=== PATIENT | female | born 1970 | race Asian ===

== ENCOUNTER → 2024-05-14 | Outpatient (CLI) | payer MEDICAID, SELFPAY ==
[2024-05-14 12:13] LABS: Absolute Lymphocyte Count 1.77 X10^3/uL (0.83-4.51); Absolute Neutrophil Count 3.1 X10^3/uL (2.0-7.7); Basophil# 0.04 X10^3/uL; Basophil% 0.8 % (0-1); Eosinophil# 0.06 X10^3/uL; Eosinophils% 1.1 % (0-5); Hematocrit 43.7 % (37-47); Hemoglobin 13.9 g/dL (12.0-15.0); Lymphocyte # 1.77 X10^3/ul (0.83-4.51); Lymphocyte % 33.4 % (19-41); Mean Corp Hgb Conc 31.8 g/dL (32-36); Mean Corpuscular Hgb 28.5 pg (27.0-32.0); Mean Corpuscular Volume 89.7 fL (81-99); Mean Platelet Vol. 10.7 fl (6.2-12.0); Monocyte# 0.32 X10^3/uL; NRBC Flagged by Analyzer 0 % (0-5); Neutrophil % 58.5 % (47-70); Platelet Count 340 K/mm3 (150-450); RBC Distribution Width CV 13.2 % (11.6-14.6); RBC Distribution Width SD 43.6 fl (35.1-43.9); Red Blood Count 4.87 M/mm3 (4.2-5.4); White Blood Count 5.3 K/mm3 (4.4-11.0)
[2024-05-14 12:52] LABS: AST(SGOT) 20 U/L (15-37); Alanine Aminotransfer ALT/SGPT 40 U/L (13-56); Albumin, Serum 3.7 g/dL (3.2-5.0); Alkaline Phosphatase 87 U/L (45-117); Anion Gap 3 (5-15); BUN 22 mg/dL (7-18); Calcium,Total 9.4 mg/dL (8.5-10.1); Chloride 107 mmol/L (98-107); Cholesterol 176 mg/dL (200); Creatinine, Serum 0.54 mg/dL (0.55-1.02); EST Glomerular Filtration Rate 125 mL/min (>60); Est Glom Filt Rate - Afr Amer 151 mL/min (>60); Globulin 3.6 g/dL (2.2-4.2); Glucose 114 mg/dL (74-106); High Density Lipoprotein 69 mg/dL; Potassium 3.6 mmol/L (3.5-5.1); Protein, Total 7.3 g/dL (6.4-8.2); Sodium Level 138 mmol/L (136-145); Triglycerides 94 mg/dL; Very Low Density Lipoprotein 19 mg/dL (5-40)
[2024-05-14 14:40] LABS: Hemoglobin A1c 6.4 % (3.8-5.6)
== END | disposition home or self-care (01) ==
LOC: BIMLAB 09:37
PROVIDERS: PCP Internal Medicine; Referring Provider Internal Medicine; Visit Provider Internal Medicine
DX: Z13.6 Encounter for screening for cardiovascular disorders (principal); Z83.3 Family history of diabetes mellitus; I10 Essential (primary) hypertension
CPT/HCPCS: 36415; 80053; 80061; 83036; 85025

== ENCOUNTER → 2024-06-04 | Outpatient (CLI) | payer MEDICAID, SELFPAY ==
--- NOTE | 2024-06-04 08:45 | BI_ITS ---
PROCEDURE: SCRN MAMM (CAD)W/SANDHYA BILAT REASON FOR EXAM: F, Age 54 y/o, presents for annual screening mammography. TECHNIQUE: Bilateral screening digital breast tomosynthesis with 2D and 3D images. Computer aided detection. COMPARISON: None. This is a baseline mammogram. FINDINGS: There is a focal asymmetry in the upper inner left breast at middle depth. There are no suspicious masses, grouped calcifications or architectural distortions in the right breast. BI/SCRN MAMM (CAD)W/SANDHYA BILAT IMPRESSION: The focal asymmetry in the upper inner left breast at middle depth requires fur ther evaluation. Recommend diagnostic mammogram an ultrasound of the left breast. BI-RADS 0: INCOMPLETE - NEED ADDITIONAL IMAGING EVALUATION. Follow-up code: Additional Views obtained/call backs The patient will be notified of the results by letter. Reading Location: [id number]
== END | disposition home or self-care (01) ==
PROVIDERS: PCP Internal Medicine; Referring Provider Internal Medicine; Visit Provider Internal Medicine
DX: Z12.31 Encounter for screening mammogram for malignant neoplasm of breast (principal)
CPT/HCPCS: 77063; 77067

== ENCOUNTER → 2024-06-11 | Outpatient (CLI) | payer MEDICAID, SELFPAY ==
--- NOTE | 2024-06-11 09:06 | US_ITS ---
PROCEDURE: BREAST LIMITED UNILATERAL REASON FOR EXAM: Abnormal screening mammogram. TECHNIQUE: Targeted left breast ultrasound. COMPARISON: Comparison is made with prior mammograms dated June 04, 2024 and June 11, 2024. FINDINGS: LEFT: Left breast ultrasound was targeted to the upper inner quadrant of the left breast. The breast tissue appears sonographically normal. No cyst, solid mass, or suspicious shadowing. No sonographic abnormality is seen. US/Breast Limited Unilateral IMPRESSION: BI-RADS 1: NEGATIVE. RECOMMEND ANNUAL MAMMOGRAPHIC SCREENING. Follow-up code: Routine Follow-up Reading Location: [id number]
--- NOTE | 2024-06-11 09:06 | BI_ITS ---
EXAM: DIAG MAMM W/CAD, UNILAT CLINICAL HISTORY: Abnormal screening mammogram. COMPARISON: Comparison is made with prior study dated June 04, 2024. TECHNIQUE: 90 degree lateral as well as compression views of the left breast were obtained. CAD was performed as well. FINDINGS: Dense fibroglandular tissue. No definite nodule is seen. Sonographic correlation recommended. BI/DIAG MAMM W/CAD, UNILAT IMPRESSION: Sonographic correlation overlying the slightly upper inner left breast is recom mended. BI-RADS category: 0 Reading Location: [id number]
== END | disposition home or self-care (01) ==
PROVIDERS: PCP Internal Medicine; Referring Provider Internal Medicine; Visit Provider Internal Medicine
DX: R92.8 Other abnormal and inconclusive findings on diagnostic imaging of breast (principal)
CPT/HCPCS: 76642; 77065

== ENCOUNTER 2024-07-10 06:27 | Day surgery (SDC) | payer MEDICAID, SELFPAY ==
[2024-07-10] VITALS (9 sets, daily range): BP systolic 115–128; BP diastolic 82–95; PULSE 57–68; RESP 16–18; TEMP 36.3–36.4; O2SAT 96–100; BMI 31.0
--- NOTE | 2024-07-10 07:07 | PRE.ANES_ITS ---
ASA Classification* ASA Classification ASA Classification: 2 Assessment & Plan Anesthesia* Anesthesia Assessment Anesthesia Assessment: Discussed sedation and/or anesthesia options, risks, benefits, and alternatives with patient/parents/legal guardian/POA. Questions invited. The patient/parents/legal guardian/POA seems to understand and agrees to proceed with anesthesia plan. Reviewed the physical assessment, medical history, allergy history and patient home medications list prior to surgery/procedure/anesthetic and documented any changes. Performed airway and anesthesia risk assessments. Anesthesia Type Anesthesia Type: MAC Anesthesia Focused Assessment* Temperature: 97.3 F Pulse Rate: 68 Blood Pressure: 128/94 Respiratory Rate: 16 Pulse Ox: 96 Airway Assessment Mouth opens: >3 cm Mallampati Score: II Focused Labs Anesthesia Preop lab: CBC WBC 5.3 K/mm3 (4.4-11.0) 05/14/24 09:37 05/14/24 RBC 4.87 M/mm3 (4.2-5.4) 05/14/24 09:37 05/14/24 Hgb 13.9 g/dL (12.0-15.0) 05/14/24 09:37 05/14/24 Hct 43.7 % (37-47) 05/14/24 09:37 05/14/24 Plt Count 340 K/mm3 (150-450) 05/14/24 09:37 05/14/24 CHEMISTRY Potassium 3.6 mmol/L (3.5-5.1) 05/14/24 09:37 05/14/24 Sodium 138 mmol/L (136-145) 05/14/24 09:37 05/14/24 BUN 22 mg/dL (7-18) H 05/14/24 09:37 05/14/24 Creatinine 0.54 mg/dL (0.55-1.02) L 05/14/24 09:37 Glucose 114 mg/dL (74-106) H 05/14/24 09:37 05/14/24 COAG Pre-Assessment Diagnosis/Proposed Procedure Planned Operative Procedure(s): COLONOSCOPY Anesthesia History 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 When Was Last Pacemaker Check QUESTION #4 FULL TEXT: You/Your Family Experience fever (hyperthermia) with Anesthesia Last Oral Intake Last Oral intake: Last Oral Intake NPO since 21:00 07/10/24 06:48 Meds taken in AM with sips of No 07/10/24 06:48 water? Meds patient instructed to take am of surgery PONV PONV - house superintendent: PONV - house superintendent Female Yes 07/09/24 15:17 HX of Motion Sickness No 07/09/24 15:17 HX of N/V After Surgery No 07/09/24 15:17 Non-Smoker Yes 07/09/24 15:17 Duration of Surgery greater No 07/09/24 15:17 than 60 minutes Number of Risk Factors 2 07/09/24 15:17 PONV Score Moderate Risk 07/09/24 15:17 Height & Weight Height & Weight: Anesthesia: Height & Weight Height 5 ft 2 in 07/10/24 06:48 Weight: 77 kg 07/10/24 06:48 Body Mass Index (BMI) 31.0 07/10/24 06:48 Respiratory Assessment Respiratory Assessment - house superintendent: Respiratory Tract Infection Hx - house superintendent Hx Respiratory Tract Infection No 07/09/24 15:17 STOP Sleep Apnea STOP Sleep Apnea - house superintendent: STOP Sleep Apnea - house superintendent Hx Hypertension Yes 07/09/24 15:17 Hx Sleep Apnea No 07/09/24 15:17 CPAP BIPAP Do you snore loudly (louder No 07/09/24 15:17 than talking or can be heard Do you often feel tired/ No 07/09/24 15:17 fatigued/ sleepy during daytime? Has anyone observed you stop No 07/09/24 15:17 breathing during sleep? STOP Results Negative 07/09/24 15:17 QUESTION #5 FULL TEXT : Do you snore loudly (louder than talking or can be heard through closed doors)? Tobacco Use History Tobacco Use History - house superintendent: Tobacco Use History - house superintendent Tobacco Use Smoking Status Never smoker 07/09/24 15:17 Hx Tobacco Use No 07/09/24 15:17 Years Smoking Packs Smoked per Day Smoking Cessation Date was within the last 15 years Hx Smoking Cessation Date Hx Smoking Cessation Counseling Hematologic Medial History Hematologic Hx - house superintendent: Hematologic Medical Hx - booky Hx of Blood Transfusion No 07/09/24 15:17 Hx of Transfusion in last 3 No 07/09/24 15:17 Months Date of Last Transfusion (if within last 3 months) Ever experience any problems No 07/09/24 15:17 with transfusion(s)? Specify any problems Hx of Preganancy in last 3 No 07/09/24 15:17 Months Nurse Filling Out Transfusion MGRIFFITH 07/09/24 15:17 & Questions: Date: 07/09/24 07/09/24 15:17 Time: 15:22 07/09/24 15:17 Patient unable to answer at this time (ie. confused, unrespo /Reproduction History /Reproductive History - house superintendent: /Reproductive Hx- house superintendent Hx Now No 07/09/24 15:17 Gestational Age (in weeks): EDC: Hx Hx Para Hx Section SAB No 07/09/24 15:17 PFSH Medical History Dietary restriction Heartburn Non-smoker HTN (hypertension) Home Medications ?Medication ?Instructions ?Recorded ?Last Taken ?Type blood pressure monitor #1 ea 05/14/24 Unknown Rx multivitamin 1 tab PO QDAY 05/14/2407/09 History lisinopril 10 mg tablet 10 mg PO QDAY #90 tabs 05/2807/09/24 Rx Allergy/AdvReac Type Severity Reaction Status Date / Time bitter melon Allergy Intermediate Hives Verified 07/10/24 06:47 Family History Brother Diabetes Hypertension Sister Hypertension Diabetes Surgical History Previous section Social History household members: family housing: house current occupational status: employed 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
--- NOTE | 2024-07-10 07:17 | H&P.OPEN ---
HPI - General General Date of Service: 07/10/24 HPI Narrative TANNER NOVOA, is a 54 F who presents for screening colonoscopy. Did discuss procedure and risk using the production material handler tablet. Patient no further questions this time. Denies any changes since the office visit. Patient states she has bowel movements almost every day denies any blood. 05/28/2024 office visit HPI HPI: 54-year-old female presents with her [id number]- for screening for colon cancer/colonoscopy. Patient speaks little [place] language is Mandarin son-in-law does help with translation. Patient never had previous colonoscopy. Patient denies any family history of colon cancer. Patient denies any abdominal pain/nausea/vomiting/reflux. Patient has bowel movements about every other day denies any blood. Patient is aware that we will have an official medical transport specialist prior to the colonoscopy. [facility] Medical History Dietary restriction Heartburn Non-smoker HTN (hypertension) Home Medications ?Medication ?Instructions ?Recorded ?Last Taken ?Type blood pressure monitor #1 ea 05/14/24 Unknown Rx multivitamin 1 tab PO QDAY 05/14/24 07/09/24 History lisinopril 10 mg tablet 10 mg PO QDAY #90 tabs 05/28/24 07/09/24 Rx Allergy/AdvReac Type Severity Reaction Status Date / Time bitter melon Allergy Intermediate Hives Verified 07/10/24 06:47 Family History Brother Diabetes Hypertension Sister Hypertension Diabetes Surgical History Previous section Social History household members: family housing: house current occupational status: employed 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 Smoking Status: Never smoker alcohol intake: current alcohol intake frequency: holidays/special occasions only substance use type: does not use what type of physical activity do you participate in: none seatbelt use: always do you feel safe at home: Yes Past Medical/Surgical History Planned Operation Planned Operative Procedure(s): COLONOSCOPY Respiratory Do You Snore Loudly (louder than talking or can be heard): No Do You Often Feel Tired/ Fatigued/ Sleepy Dring Daytime?: No Has Anyone Observed You Stop Breathing During Sleep?: No Result (for STOP score): Negative Smoking Status: Never smoker Reproduction : No Miscellaneous Recent Exposure to Contagious Disease: No Allergies bitter melon Allergy (Intermediate, Verified 07/10/24 06:47) Hives Discharge Is Pt Admitted From a Senior Care, or a Senior Care: No Who Could Help: FAMILY After D/C, Where Do you Plan to Go: Return Home Vital Signs Vital Signs Vital Signs: 07/10/24 06:48 07/10/24 06:48 07/10/24 07:07 Temperature 97.3 F L 97.3 F L Temperature Source Temporal Pulse Rate 68 68 Respiratory Rate 16 16 Respiratory Pattern Normal Blood Pressure 128/94 H 128/94 H Blood Pressure Mean 105 Blood Pressure Source Monitor Blood Pressure Position Semi-Fowlers Blood Pressure Location Right Arm Pulse Ox 96 96 Oxygen Delivery Method Room Air Weight Weight: 169 lb 12.095 oz Body Mass Index (BMI) 31.0 Physical Exam Const alert, oriented x3 and no apparent distress HEENT normocephalic and head/scalp atraumatic Resp normal respiratory effort Cardio regular rate GI soft to palpation and non-tender; Negative for non-distended Palpation: Negative for guarding Extremity no clubbing, cyanosis or edema Skin no rashes or lesions noted Neuro CN's II-XII intact bilaterally Psych mental status grossly normal Assessment & Plan Assessment/Plan (1) Screening for malignant neoplasm of colon: Surgery Risks - Colonoscopy I discussed with the patient the risks of the procedure: Yes Risks Include but are not Limited To: Risks include but are not limited to: Bleeding, perforation requiring further surgery, inability to complete colonoscopy requiring barium enema.
--- NOTE | 2024-07-10 08:00 | COLBX_PTH ---
PATIENT: TANNER NOVOA LOC: EN U#:[id number] AGE/SX: 54/F ROOM: RE07/10/[address]: Dr. Brook Coto MD : 1970 BED: DIS: 07/10/2024 SPEC #: [id number] RECD: 07/10/24 12:12 STATUS: SANDRA EDITH #: [id number] KATHRYN: 07/10/24 08:[address]: Brook Coto DEPT: SURGICAL PATHOLOGY RECD BY: Dana Chavez ENTERED: 07/10/24 13:04 SP TYPE: COLON BX OTHR DR: Dr. Julia Trotetr MD Tissues: A - Cecum, NOS B - Transverse colon Procedures: Surgery Specimen Level IV HEADER OPERATION: Colonoscopy PRE-OP DIAGNOSIS: Screening for malignant neoplasm of colon TISSUE SUBMITTED: A- Rectal polyp, B- Transverse colon polyp MICROSCOPIC DIAGNOSIS A. Colon, cecum, polyp, biopsy: * Serrated polyp with features of sessile serrated lesion. B. Colon, transverse, polyp, biopsy: * Sessile serrated lesion, mucosal lymphoid aggregate. MICROSCOPIC DESCRIPTION Slides are reviewed. GROSS DESCRIPTION A. Received in fixative is one container labeled with the patient's name and designated Cecum polyp. The specimen consists of two irregular fragments of light roque soft tissue that in aggregate measure 0.5 x 0.4 x 0.1 cm. The specimen is totally submitted in one cassette. B. Received in fixative is one container labeled with the patient's name and designated Transverse colon polyp. The specimen consists of two irregular fragments of light roque soft tissue that in aggregate measure 0.6 x 0.5 x 0.1 cm. The specimen is totally submitted in one cassette. MS/mr 07/10/2024 CPT:05464d3
--- NOTE | 2024-07-10 09:08 | OP.COLON_ITS ---
Patient Name: Kerrie Robin Procedure Date: 07/10/2024 8:35 AM Date of : 1970 Age: 54 Procedure: Colonoscopy Indications: Screening for colorectal malignant neoplasm Providers: Brook Coto MD Referring MD: Julia Trotter Md Medicines: Monitored Anesthesia Care Patient Profile: This is a 54 year old female. Last Colonoscopy: none. The patient's first colonoscopy is today. Complications: No immediate complications. Procedure: Pre-Anesthesia Assessment: - Prior to the procedure, a History and Physical was performed, and patient medications and allergies were reviewed. The patient's tolerance of previous anesthesia was also reviewed. The risks and benefits of the procedure and the sedation options and risks were discussed with the patient. All questions were answered, and informed consent was obtained. Prior Anticoagulants: The patient has taken no anticoagulant or antiplatelet agents. ASA Grade Assessment: Per anesthesia. After reviewing the risks and benefits, the patient was deemed in satisfactory condition to undergo the procedure. After I obtained informed consent, the scope was passed under direct vision. Throughout the procedure, the patient's blood pressure, pulse, and oxygen saturations were monitored continuously. The Colonoscope was introduced through the anus and advanced to the terminal ileum. The colonoscopy was performed without difficulty. The patient tolerated the procedure well. The quality of the bowel preparation was good. Scope In: 8:40:15 AM Scope Withdrawal Time 0 hours 16 minutes 16 seconds Scope Out: 9:01:55 AM Total Procedure Duration Time 0 hours 21 minutes 40 seconds Findings: The perianal and digital rectal examinations were normal. Two sessile polyps were found in the transverse colon and cecum. The polyps were less than 5 mm in size. These polyps were removed with a cold biopsy forceps. Resection and retrieval were complete. The exam was otherwise without abnormality on direct and retroflexion views. Impression: - Two less than 5 mm polyps in the transverse colon and in the cecum, removed with a cold biopsy forceps. Resected and retrieved. - The examination was otherwise normal on direct and retroflexion views. Recommendation: - Discharge patient to home. - Resume previous diet. - Continue present medications. - Await pathology results. - Repeat colonoscopy in 5 years for surveillance based on pathology results. Procedure Code(s): --- Professional --- 24834, PT, Colonoscopy, flexible; with biopsy, single or multiple Diagnosis Code(s): --- Professional --- Z12.11, Encounter for screening for malignant neoplasm of colon D12.3, Benign neoplasm of transverse colon (hepatic flexure or splenic flexure) D12.0, Benign neoplasm of cecum CPT copyright 2021 [employer] [place] [employer]. All rights reserved. The codes documented in this report are preliminary and upon badger distiller operator review may be revised to meet current compliance requirements. MD Brook Slaughter MD 07/10/2024 9:08:14 AM This report has been signed electronically. Number of Addenda: 0 Note Initiated On: 07/10/2024 8:35 AM
--- NOTE | 2024-07-10 09:08 | OP.CCLET_ITS ---
07/10/2024 Julia Trotter Md Re : Colonoscopy procedure for Kerrie Robin Dear Sergo This procedure was performed on Wednesday, July 10, 2024. My impressions and recommendations are as follows: Impressions : - Two less than 5 mm polyps in the transverse colon and in the cecum, removed with a cold biopsy forceps. Resected and retrieved. - The examination was otherwise normal on direct and retroflexion views. Recommendations : - Discharge patient to home. - Resume previous diet. - Continue present medications. - Await pathology results. - Repeat colonoscopy in 5 years for surveillance based on pathology results. My findings are described in the full procedure note, which is enclosed. If I can be of further assistance, please feel free to contact me at Doctor phone number(s): , Work: . Sincerely, MD Brook Slaughter MD 07/10/2024 9:08:14 AM This report has been signed electronically.
--- NOTE | 2024-07-10 09:13 | PCM.POST.ANE ---
Anesthesia: Postop Eval I Current Vital Signs Temperature: 97.3 F Pulse Rate: 64 Blood Pressure: 117/90 Respiratory Rate: 16 Pulse Ox: 99 Oxygen Delivery Method: Room Air Assessment Airway patent: Yes Spontaneous unlabored respirations: Yes Mental status: Asleep nausea: No Vomiting: No Anesthesia Complication: No Fluid Hydration Crystalloid volume administer (ml): 40 Total IV fluid infused: 40 Progress Note Anesthesia document: Postop Eval 1 completed: Yes
--- NOTE | 2024-07-10 10:52 | PCM.POSTANE2 ---
Anesthesia Postop Eval I Sum Postop Eval Completion status Anesthesia document: Postop Eval 1 completed: Yes Anesthesia Postop Eval I Summary Anesthesia Postop Eval I Summary: Anesthesia Postop Eval I: Assessment Summary Airway patent Yes 07/10/24 09:14 [email or web address] Spontaneous unlabored Yes 07/10/24 09:14 [email or web address] respirations Mental status Asleep 07/10/24 09:14 [email or web address] nausea No 07/10/24 09:14 [email or web address] Vomiting No 07/10/24 09:14 [email or web address] Anesthesia Postop Eval I: Fluid Summary Crystalloid volume administer 40 07/10/24 09:14 [email or web address] (ml) Colloids volume administered ( ml) Blood Product volume administered (ml) Total IV fluid infused 40 07/10/24 09:14 [email or web address] Anesthesia Postop Eval I: Summary Notes Anesthesia Complication No 07/10/24 09:14 [email or web address] Anesthesia Complication Comment: Post-operative progress note Anesthesia: Postop Eval II Evaluation Mental status: Awake Pain Level: 0 nausea: No Vomiting: No
== END 2024-07-10 09:49 | disposition home or self-care (01) ==
LOC: EN 06:27 → AC 06:28
PROVIDERS: PCP Internal Medicine; Referring Provider Internal Medicine; Visit Provider Surgery
PROC: 0DJD8ZZ Inspection of Lower Intestinal Tract, Via Natural or Artificial Opening Endoscopic (ICD-10-PCS; CPT 45378; principal; 2024-07-10 07:55)
DX: Z12.11 Encounter for screening for malignant neoplasm of colon (principal); I10 Essential (primary) hypertension; Z79.899 Other long term (current) drug therapy; K63.5 Polyp of colon
CPT/HCPCS: 45380; 88305; A4216; J2405

== ENCOUNTER → 2024-09-19 | Outpatient (CLI) | payer MEDICAID, SELFPAY ==
[2024-09-23 11:08] LABS: HPV APTIMA, High Risk Negative (Negative)
== END | disposition home or self-care (01) ==
LOC: LABSPEC 11:44
PROVIDERS: PCP Internal Medicine; Referring Provider Nurse Practitioner Family; Visit Provider Nurse Practitioner Family
DX: Z12.4 Encounter for screening for malignant neoplasm of cervix (principal)
CPT/HCPCS: 87624; 88175; G0145